=== PATIENT | female | born 1955 | race Caucasian/White ===

== ENCOUNTER 2017-08-11 19:14 | Inpatient (IN) ==
[2017-08-11] MEDS ORDERED: MAGNESIUM SULF RIDER 2 GM in PREMIX 1 EACH IV STA (19:22)
[2017-08-11] MEDS ORDERED: methylPREDNISolone SOD SUC 125 MG/2 ML VIAL IV STA (19:22)
[2017-08-11] MEDS ORDERED: MAGNESIUM SULF RIDER 50 ML IV ONE (19:44)
[2017-08-11] MEDS ORDERED: methylPREDNISolone SOD SUC 125 MG/2 ML VIAL ONE (19:44)
[2017-08-11 19:50] LABS: Basophils % 0.2 % (0.0-0.8); Hematocrit 42.6 VOL% (35.7-47.0); Hemoglobin 13.5 GM/DL (12.0-16.0); Immature Granulocytes % 1.1 %; Immature Granulocytes Absolute 0.17 #; Lymphocytes # 1.5 10*3/uL (1.4-4.0); Lymphocytes % 9.2 % (21.3-54.2); Mean Corpuscular HGB Conc 31.7 GM/DL (32-36); Mean Corpuscular Hemoglobin 27 PG (27-34); Mean Corpuscular Volume 83.7 FL (87-102); Mean Platelet Volume 11.5 FL (9.6-12.0); Monocytes # 0.6 10*3/uL (0.11-0.8); Monocytes % 3.5 % (1.7-12.7); NRBC # 0.06 10*3/uL; Neutrophils # 13.9 10*3/uL (1.4-7.4); Platelet Count 182 T/CUMM (130-400); Red Blood Count 5.09 MC/CUMM (3.8-5.5); Red Cell Distribution Width 15.2 % (9.3-17.3); White Blood Count 16.2 T/CUMM (4-12)
[2017-08-11 19:52] LABS: ABG Base Excess 1.1 MMOL/L (-2.5-2.5); ABG HCO3 25.3 MMOL/L (20-26); ABG Oxygen Saturation 94.5 % (95-100); ABG PCO2 45.7 MM HG (35-48); ABG PH 7.376 (7.35-7.45); ABG PO2 77.8 MM HG (80-95); ABG TCO2 23.4 MMOL/L (23-27); Allen Test Positive
[2017-08-11] MEDS ORDERED: LEVOFLOXACIN INJ 750 MG in PREMIX 1 EACH IV STA (20:10)
[2017-08-11 20:14] LABS: Band Neutrophils 3 % (0-10); Lymphocytes 8 % (20-55); Segmented Neutrophils 85 % (50-85); Total Cells Counted 100
[2017-08-11 20:15] LABS: Burr Cells Few; Elliptocytes Few; Platelet Estimate Adequate
[2017-08-11] MEDS ORDERED: LEVOFLOXACIN INJ 150 ML IV ONE (20:22)
[2017-08-11 20:24] LABS: Bilirubin,Total 0.6 MG/DL (0.2-1.0); Calcium 8.3 MG/DL (8.5-10.1); Osmolality,Calculated 286.4 MOS/KG (273-304); Potassium 2.6 MMOL/L (3.5-5.1); Total Protein 6.2 G/DL (6.4-8.3)
[2017-08-11] MEDS ORDERED: ASPIRIN CHEW 81 MG TABLET PO STA (20:37)
[2017-08-11] MEDS ORDERED: FUROSEMIDE 40 MG/4 ML VIAL IV STA (20:37)
[2017-08-11] MEDS ORDERED: ALBUTEROL/IPRATROPIUM 3 ML NEB RESP TX PRN (20:55)
[2017-08-11] MEDS ORDERED: ONDANSETRON 4 MG/2 ML VIAL IV PRN (20:55)
[2017-08-11] MEDS ORDERED: FUROSEMIDE 20 MG/2 ML VIAL ONE (21:10)
[2017-08-11] MEDS ORDERED: ASPIRIN 325 MG TABLET ONE ×2 (21:10→21:26)
[2017-08-11] MEDS ORDERED: ENOXAPARIN 100 MG/ML SYRINGE SUBCUT ONE ×2 (21:26→22:44)
[2017-08-11] MEDS ORDERED: FAMOTIDINE 20 MG/2 ML VIAL IV ONE ×2 (21:28→21:32)
[2017-08-11] MEDS: FAMOTIDINE 20 MG/2 ML VIAL IV SCH (21:30)
[2017-08-11] MEDS: ENOXAPARIN 100 MG/ML SYRINGE SUBCUT SCH (21:32)
[2017-08-11] MEDS ORDERED: LORazepam 1 MG TABLET PO ONE (22:44)
[2017-08-11] MEDS ORDERED: POTASSIUM CHLORIDE INJ 30 MEQ in SODIUM CHLORIDE 0.9% 500 ML IV ONE (23:00)
[2017-08-11 23:46] LABS: ABG Base Excess 1.9 MMOL/L (-2.5-2.5); ABG HCO3 26.1 MMOL/L (20-26); ABG Oxygen Saturation 98.9 % (95-100); ABG PH 7.338 (7.35-7.45); ABG TCO2 25.4 MMOL/L (23-27)
[2017-08-11] MEDS: ALBUTEROL/IPRATROPIUM 3 ML NEB RESP TX SCH (23:52)
[2017-08-11] MEDS: methylPREDNISolone SOD SUC 125 MG/2 ML VIAL IV SCH (23:55)
[2017-08-12] MEDS: ALPRAZolam 0.25 MG TABLET PO PRN ×3 (00:11→22:57)
[2017-08-12] MEDS: ZIPRASIDONE 20 MG/1 ML VIAL IM PRN ×3 (01:07→22:57)
[2017-08-12] MEDS: ALBUTEROL/IPRATROPIUM 3 ML NEB RESP TX SCH ×6 (03:42→23:34)
[2017-08-12 04:51] LABS: Basophils # 0.1 10*3/uL (0.0-0.2); Basophils % 0.4 % (0.0-0.8); Hematocrit 41.5 VOL% (35.7-47.0); Immature Granulocytes % 1.4 %; Lymphocytes # 1.3 10*3/uL (1.4-4.0); Lymphocytes % 9.4 % (21.3-54.2); Mean Corpuscular HGB Conc 31.3 GM/DL (32-36); Mean Corpuscular Hemoglobin 26 PG (27-34); Mean Corpuscular Volume 83.3 FL (87-102); Mean Platelet Volume 11.1 FL (9.6-12.0); Monocytes # 0.4 10*3/uL (0.11-0.8); Monocytes % 2.6 % (1.7-12.7); NRBC # 0.07 10*3/uL; Neutrophils # 12.2 10*3/uL (1.4-7.4); Neutrophils % 86.2 % (38.7-73.9); Platelet Count 166 T/CUMM (130-400); Red Blood Count 4.98 MC/CUMM (3.8-5.5); Red Cell Distribution Width 15.3 % (9.3-17.3); White Blood Count 14.1 T/CUMM (4-12)
[2017-08-12] MEDS: methylPREDNISolone SOD SUC 125 MG/2 ML VIAL IV SCH ×4 (04:51→22:07)
[2017-08-12 05:16] LABS: INR 1.1; PT Patient Result 11.5 SECS
[2017-08-12 05:32] LABS: Albumin 2.7 G/DL (3.4-5.0); Bilirubin,Total 0.6 MG/DL (0.2-1.0); Calcium 7.6 MG/DL (8.5-10.1); Potassium 2.6 MMOL/L (3.5-5.1); Risk Ratio 2.78; Total Protein 6.2 G/DL (6.4-8.3)
[2017-08-12 05:33] LABS: Band Neutrophils 4 % (0-10); Lymphocytes 7 % (20-55); Segmented Neutrophils 88 % (50-85); Total Cells Counted 100
[2017-08-12 05:34] LABS: Hypochromasia 1+; Microcytosis 1+; Platelet Estimate Adequate
[2017-08-12 05:36] LABS: Troponin I Only 0.214 NG/ML (0.00-0.045)
[2017-08-12] MEDS: POTASSIUM CHLORIDE 20 MEQ TABLET PO PRN ×4 (06:09→17:09)
[2017-08-12] MEDS: cefTRIAXone 1,000 MG in SYRINGE 1 EACH IV SCH (08:46)
[2017-08-12] MEDS: ENOXAPARIN 100 MG/ML SYRINGE SUBCUT SCH ×2 (08:47→22:07)
[2017-08-12] MEDS: FAMOTIDINE 20 MG/2 ML VIAL IV SCH ×2 (08:47→20:16)
[2017-08-12] MEDS: LISINOPRIL/HCTZ 20-25 MG TABLET PO SCH (09:26)
[2017-08-12 10:19] LABS: Apearance,Urine Cloudy (Clear); Glucose,Urine (UA) Negative (Negative); Ketones,Urine 100 mg/dL (Negative); Nitrite,Urine Negative (Negative); Protein,Urine 100 MG/DL; Urine Color Red (Yellow); Urine Specific Gravity 1.025 (1.001-1.035)
[2017-08-12 10:20] LABS: Bilirubin,Urine Negative (Negative); Blood, Urine Large mg/dL (Negative); Urine Urobilinogen 0.2 EU/DL (0.2-1.0)
[2017-08-12 10:26] LABS: RBC,Urine TNTC /HPF (0-4)
[2017-08-12 10:27] LABS: Squamous Epithelial Cell,Urine Few /HPF (0-10); WBC,Urine 25-50 /HPF (0-6)
[2017-08-12] MEDS: METOPROLOL TARTRATE 25 MG TABLET PO SCH ×2 (13:54→20:16)
[2017-08-12] MEDS ORDERED: hydrALAZINE 20 MG/1 ML VIAL IV PRN (15:08)
[2017-08-12 15:14] LABS: Calcium 8.1 MG/DL (8.5-10.1); Magnesium 2.4 MG/DL (1.8-2.4); Osmolality,Calculated 290.8 MOS/KG (273-304); Potassium 2.9 MMOL/L (3.5-5.1)
[2017-08-12] MEDS: LEVOFLOXACIN INJ 750 MG in PREMIX 1 EACH IV SCH (20:16)
[2017-08-13] MEDS: ALBUTEROL/IPRATROPIUM 3 ML NEB RESP TX SCH ×6 (03:53→23:24)
[2017-08-13] MEDS: methylPREDNISolone SOD SUC 125 MG/2 ML VIAL IV SCH ×4 (04:44→22:12)
[2017-08-13 04:50] LABS: Basophils # 0.1 10*3/uL (0.0-0.2); Basophils % 0.3 % (0.0-0.8); Hematocrit 41.4 VOL% (35.7-47.0); Hemoglobin 12.8 GM/DL (12.0-16.0); Immature Granulocytes % 2.3 %; Immature Granulocytes Absolute 0.41 #; Lymphocytes # 1.5 10*3/uL (1.4-4.0); Lymphocytes % 8.5 % (21.3-54.2); Mean Corpuscular HGB Conc 30.9 GM/DL (32-36); Mean Corpuscular Hemoglobin 27 PG (27-34); Mean Corpuscular Volume 85.7 FL (87-102); Monocytes # 1.1 10*3/uL (0.11-0.8); NRBC # 0.06 10*3/uL; Neutrophils # 14.5 10*3/uL (1.4-7.4); Neutrophils % 82.9 % (38.7-73.9); Platelet Count 190 T/CUMM (130-400); Red Blood Count 4.83 MC/CUMM (3.8-5.5); Red Cell Distribution Width 15.2 % (9.3-17.3); White Blood Count 17.6 T/CUMM (4-12)
[2017-08-13 05:13] LABS: Band Neutrophils 3 % (0-10); Giant Platelets Few; Hypochromasia 1+; Lymphocytes 6 % (20-55); Platelet Estimate Adequate; Segmented Neutrophils 87 % (50-85); Total Cells Counted 100
[2017-08-13 05:14] LABS: Microcytosis Slight; Ovalocytes Slight
[2017-08-13] MEDS: LEVOTHYROXINE 175 MCG TABLET PO SCH (06:06)
[2017-08-13 06:39] LABS: Calcium 8.1 MG/DL (8.5-10.1); Magnesium 2.6 MG/DL (1.8-2.4); Osmolality,Calculated 289.8 MOS/KG (273-304)
[2017-08-13] MEDS ORDERED: FUROSEMIDE 40 MG/4 ML VIAL IV ONE (07:32)
[2017-08-13] MEDS: ASPIRIN EC 81 MG TABLET PO SCH (08:13)
[2017-08-13] MEDS: METOPROLOL TARTRATE 25 MG TABLET PO SCH ×2 (08:13→20:24)
[2017-08-13] MEDS: POTASSIUM CHLORIDE 20 MEQ TABLET PO PRN ×4 (08:13→16:58)
[2017-08-13] MEDS: DULoxetine 30 MG CAPSULE PO SCH (08:13)
[2017-08-13] MEDS: LISINOPRIL/HCTZ 20-25 MG TABLET PO SCH (08:13)
[2017-08-13] MEDS: cefTRIAXone 1,000 MG in SYRINGE 1 EACH IV SCH (08:16)
[2017-08-13] MEDS: FAMOTIDINE 20 MG/2 ML VIAL IV SCH ×2 (08:16→20:24)
[2017-08-13] MEDS: ENOXAPARIN 100 MG/ML SYRINGE SUBCUT SCH ×2 (08:30→20:38)
[2017-08-13] MEDS: LEVOFLOXACIN INJ 750 MG in PREMIX 1 EACH IV SCH (20:24)
[2017-08-13] MEDS: ZIPRASIDONE 20 MG/1 ML VIAL IM PRN (21:13)
[2017-08-13] MEDS ORDERED: ETOMIDATE 20 MG/10 ML VIAL IV ONE (22:32)
[2017-08-13] MEDS ORDERED: SUCCINYLCHOLINE 200 MG/10 ML VIAL ONE (22:33)
[2017-08-13] MEDS ORDERED: LORazepam 2 MG/1 ML VIAL IV ONE (23:30)
[2017-08-14] MEDS: ALBUTEROL/IPRATROPIUM 3 ML NEB RESP TX SCH ×6 (03:24→23:20)
[2017-08-14 04:43] LABS: Basophils # 0.1 10*3/uL (0.0-0.2); Basophils % 0.5 % (0.0-0.8); Hematocrit 41.8 VOL% (35.7-47.0); Hemoglobin 13.3 GM/DL (12.0-16.0); Immature Granulocytes % 2.4 %; Lymphocytes # 0.9 10*3/uL (1.4-4.0); Lymphocytes % 5.7 % (21.3-54.2); Mean Corpuscular HGB Conc 31.8 GM/DL (32-36); Mean Corpuscular Hemoglobin 26 PG (27-34); Mean Corpuscular Volume 82.9 FL (87-102); Monocytes # 1.1 10*3/uL (0.11-0.8); Monocytes % 6.8 % (1.7-12.7); NRBC # 0.07 10*3/uL; Neutrophils % 84.6 % (38.7-73.9); Platelet Count 235 T/CUMM (130-400); Red Blood Count 5.04 MC/CUMM (3.8-5.5); Red Cell Distribution Width 15.2 % (9.3-17.3); White Blood Count 16.5 T/CUMM (4-12)
[2017-08-14 05:11] LABS: Calcium 8.3 MG/DL (8.5-10.1); Magnesium 2.1 MG/DL (1.8-2.4); Osmolality,Calculated 286.3 MOS/KG (273-304); Potassium 2.7 MMOL/L (3.5-5.1)
[2017-08-14] MEDS: POTASSIUM CHLORIDE 20 MEQ TABLET PO PRN ×7 (05:18→23:30)
[2017-08-14] MEDS: methylPREDNISolone SOD SUC 125 MG/2 ML VIAL IV SCH ×3 (05:19→16:46)
[2017-08-14] MEDS: LEVOTHYROXINE 175 MCG TABLET PO SCH (06:16)
[2017-08-14] MEDS: cefTRIAXone 1,000 MG in SYRINGE 1 EACH IV SCH (08:30)
[2017-08-14] MEDS ORDERED: DEXTROSE 5% NACL 0.45% 1,000 ML IV SCH (08:30)
[2017-08-14 09:11] LABS: ABG Base Excess 10.7 MMOL/L (-2.5-2.5); ABG HCO3 34.5 MMOL/L (20-26); ABG Oxygen Saturation 97.9 % (95-100); ABG PCO2 54.7 MM HG (35-48); ABG PH 7.441 (7.35-7.45); ABG TCO2 32.4 MMOL/L (23-27)
[2017-08-14] MEDS: DEXT 5% NACL 0.45% KCL 20 MEQ 20 MEQ/1,000 ML BAG IV SCH ×2 (09:23→20:27)
[2017-08-14] MEDS: FAMOTIDINE 20 MG/2 ML VIAL IV SCH ×2 (09:26→20:28)
[2017-08-14] MEDS: ASPIRIN EC 81 MG TABLET PO SCH (09:26)
[2017-08-14] MEDS: DULoxetine 30 MG CAPSULE PO SCH (09:26)
[2017-08-14] MEDS: LISINOPRIL/HCTZ 20-25 MG TABLET PO SCH (09:26)
[2017-08-14] MEDS: METOPROLOL TARTRATE 25 MG TABLET PO SCH ×2 (09:26→20:28)
[2017-08-14] MEDS: ENOXAPARIN 100 MG/ML SYRINGE SUBCUT SCH ×2 (09:54→20:33)
[2017-08-14 10:20] LABS: Calcium 8.1 MG/DL (8.5-10.1); Osmolality,Calculated 289.3 MOS/KG (273-304); Potassium 2.8 MMOL/L (3.5-5.1)
[2017-08-14] MEDS ORDERED: diphenhydrAMINE 25 MG/10 ML UDCUP PO PRN (15:43)
[2017-08-14] MEDS: LEVOFLOXACIN INJ 750 MG in PREMIX 1 EACH IV SCH (20:28)
[2017-08-15] MEDS: methylPREDNISolone SOD SUC 125 MG/2 ML VIAL IV SCH ×4 (00:05→21:46)
[2017-08-15] MEDS: ALBUTEROL/IPRATROPIUM 3 ML NEB RESP TX SCH ×6 (03:30→23:59)
[2017-08-15 03:41] LABS: ABG PCO2 54.9 MM HG (35-48); ABG PH 7.475 (7.35-7.45)
[2017-08-15 03:42] LABS: ABG Base Excess 13.7 MMOL/L (-2.5-2.5); ABG HCO3 39.5 MMOL/L (20-26); ABG PO2 111.6 MM HG (80-95); ABG TCO2 41.2 MMOL/L (23-27)
[2017-08-15 03:43] LABS: ABG Oxygen Saturation 98.1 % (95-100)
[2017-08-15 03:44] LABS: Allen Test Positive
[2017-08-15 05:29] LABS: Basophils # 0.1 10*3/uL (0.0-0.2); Basophils % 0.3 % (0.0-0.8); Hematocrit 40.1 VOL% (35.7-47.0); Hemoglobin 12.3 GM/DL (12.0-16.0); Immature Granulocytes % 3.1 %; Lymphocytes % 5.4 % (21.3-54.2); Mean Corpuscular HGB Conc 30.7 GM/DL (32-36); Mean Corpuscular Hemoglobin 26 PG (27-34); Mean Platelet Volume 11.7 FL (9.6-12.0); Monocytes # 1.3 10*3/uL (0.11-0.8); Neutrophils # 16.2 10*3/uL (1.4-7.4); Neutrophils % 84.2 % (38.7-73.9); Platelet Count 201 T/CUMM (130-400); Red Blood Count 4.72 MC/CUMM (3.8-5.5); Red Cell Distribution Width 15.1 % (9.3-17.3); White Blood Count 19.2 T/CUMM (4-12)
[2017-08-15 05:48] LABS: Calcium 7.7 MG/DL (8.5-10.1); Magnesium 2.3 MG/DL (1.8-2.4); Osmolality,Calculated 282.5 MOS/KG (273-304); Potassium 3.9 MMOL/L (3.5-5.1)
[2017-08-15] MEDS: DEXT 5% NACL 0.45% KCL 20 MEQ 20 MEQ/1,000 ML BAG IV SCH (06:10)
[2017-08-15] MEDS: LEVOTHYROXINE 175 MCG TABLET PO SCH (06:10)
[2017-08-15 06:11] LABS: Hypochromasia 1+; Lymphocytes 3 % (20-55); Platelet Estimate Adequate; Segmented Neutrophils 88 % (50-85); Total Cells Counted 100
[2017-08-15 06:12] LABS: Giant Platelets Few; Microcytosis Slight; Ovalocytes Slight
[2017-08-15] MEDS: POTASSIUM CHLORIDE 20 MEQ TABLET PO PRN (06:36)
[2017-08-15] MEDS: METOPROLOL TARTRATE 25 MG TABLET PO SCH ×2 (09:01→21:28)
[2017-08-15] MEDS: DULoxetine 30 MG CAPSULE PO SCH (09:01)
[2017-08-15] MEDS: LISINOPRIL/HCTZ 20-25 MG TABLET PO SCH (09:01)
[2017-08-15] MEDS: ASPIRIN EC 81 MG TABLET PO SCH (09:01)
[2017-08-15] MEDS: cefTRIAXone 1,000 MG in SYRINGE 1 EACH IV SCH (09:18)
[2017-08-15] MEDS: FAMOTIDINE 20 MG/2 ML VIAL IV SCH ×2 (09:19→21:46)
[2017-08-15] MEDS: ENOXAPARIN 100 MG/ML SYRINGE SUBCUT SCH ×2 (09:23→22:51)
[2017-08-15] MEDS: ISOSORBIDE MONONITRATE 30 MG TABLET PO SCH (09:28)
[2017-08-15] MEDS: ALPRAZolam 0.25 MG TABLET PO PRN (13:38)
[2017-08-15] MEDS ORDERED: methylPREDNISolone SOD SUC 40 MG/1 ML VIAL ONE (15:49)
[2017-08-15] MEDS ORDERED: tiZANidine 4 MG TABLET PO PRN (19:09)
[2017-08-15] MEDS ORDERED: ACETAMINOPHEN 325 MG TABLET PO PRN (19:27)
[2017-08-15] MEDS ORDERED: traMADol 50 MG TABLET PO PRN (19:27)
[2017-08-15] MEDS: AMITRIPTYLINE 75 MG TABLET PO SCH (21:36)
[2017-08-15] MEDS: traZODone 50 MG TABLET PO SCH (21:37)
[2017-08-15] MEDS: ROSUVASTATIN 20 MG TABLET PO SCH (21:37)
[2017-08-15] MEDS: LEVOFLOXACIN INJ 750 MG in PREMIX 1 EACH IV SCH (22:49)
[2017-08-16] MEDS ORDERED: ENOXAPARIN 100 MG/ML SYRINGE SUBCUT SCH (02:30)
[2017-08-16] MEDS: ALBUTEROL/IPRATROPIUM 3 ML NEB RESP TX SCH ×5 (03:38→20:24)
[2017-08-16 05:21] LABS: Basophils % 0.2 % (0.0-0.8); Hematocrit 36.8 VOL% (35.7-47.0); Hemoglobin 11.3 GM/DL (12.0-16.0); Immature Granulocytes % 4.6 %; Immature Granulocytes Absolute 0.76 #; Lymphocytes # 1.4 10*3/uL (1.4-4.0); Lymphocytes % 8.3 % (21.3-54.2); Mean Corpuscular HGB Conc 30.7 GM/DL (32-36); Mean Corpuscular Hemoglobin 26 PG (27-34); Mean Corpuscular Volume 85.4 FL (87-102); Mean Platelet Volume 11.6 FL (9.6-12.0); Monocytes # 1.1 10*3/uL (0.11-0.8); Monocytes % 6.4 % (1.7-12.7); Neutrophils # 13.2 10*3/uL (1.4-7.4); Neutrophils % 80.5 % (38.7-73.9); Platelet Count 223 T/CUMM (130-400); Red Blood Count 4.31 MC/CUMM (3.8-5.5); Red Cell Distribution Width 14.9 % (9.3-17.3); White Blood Count 16.4 T/CUMM (4-12)
[2017-08-16 05:50] LABS: Giant Platelets Few; Hypochromasia 1+; Lymphocytes 3 % (20-55); Microcytosis Slight; Ovalocytes Slight; Platelet Estimate Adequate; Segmented Neutrophils 92 % (50-85); Total Cells Counted 100
[2017-08-16 05:54] LABS: Calcium 7.9 MG/DL (8.5-10.1); Magnesium 2.2 MG/DL (1.8-2.4); Osmolality,Calculated 280.7 MOS/KG (273-304)
[2017-08-16] MEDS: LEVOTHYROXINE 175 MCG TABLET PO SCH (06:11)
[2017-08-16] MEDS: methylPREDNISolone SOD SUC 125 MG/2 ML VIAL IV SCH (06:12)
[2017-08-16] MEDS: DULoxetine 30 MG CAPSULE PO SCH (09:27)
[2017-08-16] MEDS: METOPROLOL TARTRATE 25 MG TABLET PO SCH ×2 (09:27→20:57)
[2017-08-16] MEDS: AMITRIPTYLINE 75 MG TABLET PO SCH (09:27)
[2017-08-16] MEDS: LISINOPRIL/HCTZ 20-25 MG TABLET PO SCH (09:27)
[2017-08-16] MEDS: ISOSORBIDE MONONITRATE 30 MG TABLET PO SCH (09:28)
[2017-08-16] MEDS: ASPIRIN EC 81 MG TABLET PO SCH (09:28)
[2017-08-16] MEDS: FAMOTIDINE 20 MG/2 ML VIAL IV SCH ×2 (09:28→21:02)
[2017-08-16] MEDS: cefTRIAXone 1,000 MG in SYRINGE 1 EACH IV SCH (09:28)
[2017-08-16] MEDS: methylPREDNISolone SOD SUC 40 MG/1 ML VIAL IV SCH ×2 (11:30→22:27)
[2017-08-16] MEDS: ENOXAPARIN 100 MG/ML SYRINGE SUBCUT SCH (11:30)
[2017-08-16] MEDS: ROSUVASTATIN 20 MG TABLET PO SCH (20:57)
[2017-08-16] MEDS: traZODone 50 MG TABLET PO SCH (20:57)
[2017-08-16] MEDS: LEVOFLOXACIN INJ 750 MG in PREMIX 1 EACH IV SCH (21:03)
[2017-08-17] MEDS: ALBUTEROL/IPRATROPIUM 3 ML NEB RESP TX SCH ×7 (00:32→23:46)
[2017-08-17 05:34] LABS: Basophils # 0.1 10*3/uL (0.0-0.2); Basophils % 0.2 % (0.0-0.8); Hematocrit 32.1 VOL% (35.7-47.0); Hemoglobin 10.1 GM/DL (12.0-16.0); Immature Granulocytes % 4.7 %; Immature Granulocytes Absolute 0.96 #; Lymphocytes # 1.5 10*3/uL (1.4-4.0); Lymphocytes % 7.1 % (21.3-54.2); Mean Corpuscular HGB Conc 31.5 GM/DL (32-36); Mean Corpuscular Hemoglobin 27 PG (27-34); Mean Corpuscular Volume 84.7 FL (87-102); Mean Platelet Volume 11.6 FL (9.6-12.0); Monocytes # 1.7 10*3/uL (0.11-0.8); Monocytes % 8.5 % (1.7-12.7); Neutrophils # 16.2 10*3/uL (1.4-7.4); Neutrophils % 79.5 % (38.7-73.9); Platelet Count 231 T/CUMM (130-400); Red Blood Count 3.79 MC/CUMM (3.8-5.5); Red Cell Distribution Width 15.1 % (9.3-17.3); White Blood Count 20.4 T/CUMM (4-12)
[2017-08-17 06:17] LABS: Magnesium 2.4 MG/DL (1.8-2.4); Osmolality,Calculated 286.3 MOS/KG (273-304); Potassium 3.8 MMOL/L (3.5-5.1)
[2017-08-17] MEDS: LEVOTHYROXINE 175 MCG TABLET PO SCH (06:36)
[2017-08-17 07:13] LABS: Band Neutrophils 1 % (0-10); Lymphocytes 8 % (20-55); Platelet Estimate Normal; Polychromasia Slight; Segmented Neutrophils 89 % (50-85); Total Cells Counted 100
[2017-08-17] MEDS: DULoxetine 30 MG CAPSULE PO SCH (08:28)
[2017-08-17] MEDS: LISINOPRIL/HCTZ 20-25 MG TABLET PO SCH (08:29)
[2017-08-17] MEDS: ASPIRIN EC 81 MG TABLET PO SCH (08:29)
[2017-08-17] MEDS: METOPROLOL TARTRATE 25 MG TABLET PO SCH ×2 (08:29→20:30)
[2017-08-17] MEDS: AMITRIPTYLINE 75 MG TABLET PO SCH (08:29)
[2017-08-17] MEDS: ISOSORBIDE MONONITRATE 30 MG TABLET PO SCH (08:29)
[2017-08-17] MEDS: FAMOTIDINE 20 MG/2 ML VIAL IV SCH ×2 (08:30→20:30)
[2017-08-17] MEDS: ENOXAPARIN 100 MG/ML SYRINGE SUBCUT SCH (08:30)
[2017-08-17] MEDS: cefTRIAXone 1,000 MG in SYRINGE 1 EACH IV SCH (08:32)
[2017-08-17] MEDS: methylPREDNISolone SOD SUC 40 MG/1 ML VIAL IV SCH ×2 (09:34→23:16)
[2017-08-17] MEDS ORDERED: SODIUM CHLORIDE 0.9% 1,000 ML IV SCH (15:30)
[2017-08-17] MEDS: LEVOFLOXACIN INJ 750 MG in PREMIX 1 EACH IV SCH (20:30)
[2017-08-17] MEDS: traZODone 50 MG TABLET PO SCH (20:30)
[2017-08-17] MEDS: ROSUVASTATIN 20 MG TABLET PO SCH (20:30)
[2017-08-18] MEDS: ALBUTEROL/IPRATROPIUM 3 ML NEB RESP TX SCH ×5 (03:47→21:22)
[2017-08-18] MEDS: ASPIRIN EC 81 MG TABLET PO SCH (08:24)
[2017-08-18] MEDS: LEVOTHYROXINE 175 MCG TABLET PO SCH (08:24)
[2017-08-18] MEDS: AMITRIPTYLINE 75 MG TABLET PO SCH (08:24)
[2017-08-18] MEDS: FAMOTIDINE 20 MG/2 ML VIAL IV SCH ×2 (08:25→21:08)
[2017-08-18] MEDS: ISOSORBIDE MONONITRATE 30 MG TABLET PO SCH (08:25)
[2017-08-18] MEDS: DULoxetine 30 MG CAPSULE PO SCH (08:25)
[2017-08-18] MEDS: cefTRIAXone 1,000 MG in SYRINGE 1 EACH IV SCH (08:30)
[2017-08-18] MEDS: ENOXAPARIN 100 MG/ML SYRINGE SUBCUT SCH (08:35)
[2017-08-18] MEDS: methylPREDNISolone SOD SUC 40 MG/1 ML VIAL IV SCH ×2 (10:20→22:42)
[2017-08-18] MEDS: LISINOPRIL/HCTZ 20-25 MG TABLET PO SCH (10:28)
[2017-08-18] MEDS: METOPROLOL TARTRATE 25 MG TABLET PO SCH ×2 (10:28→21:08)
[2017-08-18 18:54] LABS: Basophils # 0.1 10*3/uL (0.0-0.2); Basophils % 0.2 % (0.0-0.8); Eosinophils % 0.1 % (0.00-10.9); Hematocrit 26.8 VOL% (35.7-47.0); Hemoglobin 8.5 GM/DL (12.0-16.0); Immature Granulocytes % 4.6 %; Immature Granulocytes Absolute 1.34 #; Lymphocytes # 1.4 10*3/uL (1.4-4.0); Lymphocytes % 4.9 % (21.3-54.2); Mean Corpuscular HGB Conc 31.7 GM/DL (32-36); Mean Corpuscular Hemoglobin 27 PG (27-34); Mean Corpuscular Volume 84.5 FL (87-102); Mean Platelet Volume 11.9 FL (9.6-12.0); Monocytes # 1.7 10*3/uL (0.11-0.8); Monocytes % 5.9 % (1.7-12.7); NRBC # 0.14 10*3/uL; Neutrophils # 24.7 10*3/uL (1.4-7.4); Neutrophils % 84.3 % (38.7-73.9); Platelet Count 269 T/CUMM (130-400); Red Blood Count 3.17 MC/CUMM (3.8-5.5); Red Cell Distribution Width 15.4 % (9.3-17.3); White Blood Count 29.2 T/CUMM (4-12)
[2017-08-18 19:08] LABS: Lymphocytes 6 % (20-55); Ovalocytes Slight; Platelet Estimate Adequate; Poikilocytosis Slight; Segmented Neutrophils 94 % (50-85); Total Cells Counted 100
[2017-08-18 19:09] LABS: Tear Drop Cells Slight
[2017-08-18] MEDS: ROSUVASTATIN 20 MG TABLET PO SCH (21:08)
[2017-08-18] MEDS: traZODone 50 MG TABLET PO SCH (21:08)
[2017-08-18] MEDS: LEVOFLOXACIN INJ 750 MG in PREMIX 1 EACH IV SCH (21:09)
[2017-08-19] MEDS: ALBUTEROL/IPRATROPIUM 3 ML NEB RESP TX SCH ×7 (01:39→23:59)
[2017-08-19 06:34] LABS: Basophils % 0.1 % (0.0-0.8); Eosinophils % 0.1 % (0.00-10.9); Hematocrit 25.1 VOL% (35.7-47.0); Hemoglobin 7.8 GM/DL (12.0-16.0); Immature Granulocytes % 3.8 %; Lymphocytes # 4.3 10*3/uL (1.4-4.0); Lymphocytes % 16.2 % (21.3-54.2); Mean Corpuscular HGB Conc 31.1 GM/DL (32-36); Mean Corpuscular Hemoglobin 27 PG (27-34); Mean Corpuscular Volume 85.4 FL (87-102); Mean Platelet Volume 11.6 FL (9.6-12.0); Monocytes % 7.5 % (1.7-12.7); Neutrophils % 72.3 % (38.7-73.9); Platelet Count 248 T/CUMM (130-400); Red Blood Count 2.94 MC/CUMM (3.8-5.5); Red Cell Distribution Width 15.4 % (9.3-17.3); White Blood Count 26.3 T/CUMM (4-12)
[2017-08-19] MEDS: LEVOTHYROXINE 175 MCG TABLET PO SCH (06:51)
[2017-08-19 07:03] LABS: Calcium 7.9 MG/DL (8.5-10.1); Magnesium 2.3 MG/DL (1.8-2.4); Osmolality,Calculated 280.7 MOS/KG (273-304); Potassium 3.2 MMOL/L (3.5-5.1)
[2017-08-19 07:16] LABS: Hypochromasia 1+; Lymphocytes 13 % (20-55); Microcytosis 1+; Myelocytes 1 %; Segmented Neutrophils 82 % (50-85); Total Cells Counted 100
[2017-08-19 07:17] LABS: Ovalocytes Slight; Platelet Estimate Normal
[2017-08-19] MEDS ORDERED: SODIUM CHLORIDE 0.9% 1,000 ML IV PRN (08:42)
[2017-08-19] MEDS: cefTRIAXone 1,000 MG in SYRINGE 1 EACH IV SCH (09:40)
[2017-08-19] MEDS: FAMOTIDINE 20 MG/2 ML VIAL IV SCH ×2 (09:47→21:25)
[2017-08-19] MEDS: METOPROLOL TARTRATE 25 MG TABLET PO SCH ×2 (09:51→21:26)
[2017-08-19] MEDS: AMITRIPTYLINE 75 MG TABLET PO SCH (09:51)
[2017-08-19] MEDS: DULoxetine 30 MG CAPSULE PO SCH (09:51)
[2017-08-19] MEDS: POTASSIUM CHLORIDE 20 MEQ TABLET PO PRN ×4 (09:52→16:25)
[2017-08-19] MEDS: methylPREDNISolone SOD SUC 40 MG/1 ML VIAL IV SCH ×2 (10:44→21:30)
[2017-08-19 15:05] LABS: Basophils % 0.1 % (0.0-0.8); Hematocrit 24.4 VOL% (35.7-47.0); Hemoglobin 7.7 GM/DL (12.0-16.0); Immature Granulocytes % 4.4 %; Lymphocytes # 1.2 10*3/uL (1.4-4.0); Lymphocytes % 4.8 % (21.3-54.2); Mean Corpuscular HGB Conc 31.6 GM/DL (32-36); Mean Corpuscular Hemoglobin 27 PG (27-34); Mean Corpuscular Volume 85.9 FL (87-102); Mean Platelet Volume 11.7 FL (9.6-12.0); Monocytes # 1.4 10*3/uL (0.11-0.8); Monocytes % 5.6 % (1.7-12.7); Neutrophils # 21.2 10*3/uL (1.4-7.4); Neutrophils % 85.1 % (38.7-73.9); Platelet Count 228 T/CUMM (130-400); Red Blood Count 2.84 MC/CUMM (3.8-5.5); Red Cell Distribution Width 15.4 % (9.3-17.3); White Blood Count 24.9 T/CUMM (4-12)
[2017-08-19 16:05] LABS: Band Neutrophils 2 % (0-10); Lymphocytes 5 % (20-55); Segmented Neutrophils 90 % (50-85); Total Cells Counted 100
[2017-08-19 16:06] LABS: Anisocytosis 1+; Platelet Estimate Normal
[2017-08-19] MEDS: LEVOFLOXACIN INJ 750 MG in PREMIX 1 EACH IV SCH (21:25)
[2017-08-19] MEDS: ROSUVASTATIN 20 MG TABLET PO SCH (21:25)
[2017-08-19] MEDS: traZODone 50 MG TABLET PO SCH (21:26)
[2017-08-20] MEDS: ALBUTEROL/IPRATROPIUM 3 ML NEB RESP TX SCH ×6 (03:30→23:55)
[2017-08-20 05:37] LABS: Basophils % 0.1 % (0.0-0.8); Hematocrit 29.6 VOL% (35.7-47.0); Immature Granulocytes % 5.3 %; Immature Granulocytes Absolute 1.23 #; Lymphocytes % 4.3 % (21.3-54.2); Mean Corpuscular HGB Conc 31.8 GM/DL (32-36); Mean Corpuscular Hemoglobin 27 PG (27-34); Mean Corpuscular Volume 85.3 FL (87-102); Mean Platelet Volume 12.1 FL (9.6-12.0); Monocytes % 4.3 % (1.7-12.7); Neutrophils # 19.8 10*3/uL (1.4-7.4); Platelet Count 217 T/CUMM (130-400); Red Blood Count 3.47 MC/CUMM (3.8-5.5); Red Cell Distribution Width 15.2 % (9.3-17.3); White Blood Count 23.1 T/CUMM (4-12)
[2017-08-20 05:38] LABS: Hematocrit 29.4 VOL% (35.7-47.0); Hemoglobin 9.2 GM/DL (12.0-16.0)
[2017-08-20 05:41] LABS: Calcium 7.8 MG/DL (8.5-10.1); Magnesium 2.1 MG/DL (1.8-2.4); Osmolality,Calculated 280.5 MOS/KG (273-304); Potassium 4.8 MMOL/L (3.5-5.1)
[2017-08-20 05:52] LABS: Hemoglobin 9.4 GM/DL (12.0-16.0)
[2017-08-20] MEDS: LEVOTHYROXINE 175 MCG TABLET PO SCH (06:11)
[2017-08-20 06:34] LABS: Band Neutrophils 2 % (0-10); Giant Platelets Few; Hypochromasia 1+; Lymphocytes 6 % (20-55); Microcytosis Slight; Ovalocytes Slight; Platelet Estimate Adequate; Segmented Neutrophils 89 % (50-85); Total Cells Counted 100
[2017-08-20] MEDS ORDERED: PHYTONADIONE 10 MG/1 ML AMP SUBCUT SCH (09:15)
[2017-08-20] MEDS: cefTRIAXone 1,000 MG in SYRINGE 1 EACH IV SCH (09:19)
[2017-08-20] MEDS: FAMOTIDINE 20 MG/2 ML VIAL IV SCH ×2 (09:26→21:50)
[2017-08-20] MEDS ORDERED: PHYTONADIONE 5 MG/5 ML ORAL.SYR PO ONE (09:30)
[2017-08-20] MEDS: AMITRIPTYLINE 75 MG TABLET PO SCH (09:30)
[2017-08-20] MEDS: DULoxetine 30 MG CAPSULE PO SCH (09:30)
[2017-08-20] MEDS: METOPROLOL TARTRATE 25 MG TABLET PO SCH ×2 (09:30→21:47)
[2017-08-20] MEDS: ASPIRIN EC 81 MG TABLET PO SCH (09:32)
[2017-08-20] MEDS: methylPREDNISolone SOD SUC 40 MG/1 ML VIAL IV SCH ×2 (10:48→18:15)
[2017-08-20 11:12] LABS: Hematocrit 28.6 VOL% (35.7-47.0); Hemoglobin 9.1 GM/DL (12.0-16.0)
[2017-08-20 18:01] LABS: Hematocrit 30.5 VOL% (35.7-47.0); Hemoglobin 9.6 GM/DL (12.0-16.0)
[2017-08-20] MEDS: traZODone 50 MG TABLET PO SCH (21:49)
[2017-08-20] MEDS: ROSUVASTATIN 20 MG TABLET PO SCH (21:49)
[2017-08-21] MEDS: ALBUTEROL/IPRATROPIUM 3 ML NEB RESP TX SCH ×5 (03:28→19:50)
[2017-08-21] MEDS: methylPREDNISolone SOD SUC 40 MG/1 ML VIAL IV SCH (06:30)
[2017-08-21] MEDS: LEVOTHYROXINE 175 MCG TABLET PO SCH (06:30)
[2017-08-21 06:56] LABS: Magnesium 2.1 MG/DL (1.8-2.4); Osmolality,Calculated 278.5 MOS/KG (273-304); Potassium 4.6 MMOL/L (3.5-5.1)
[2017-08-21 07:16] LABS: Basophils # 0.1 10*3/uL (0.0-0.2); Basophils % 0.3 % (0.0-0.8); Hematocrit 31.6 VOL% (35.7-47.0); Hemoglobin 9.5 GM/DL (12.0-16.0); Immature Granulocytes % 5.4 %; Immature Granulocytes Absolute 1.34 #; Lymphocytes # 2.1 10*3/uL (1.4-4.0); Lymphocytes % 8.5 % (21.3-54.2); Mean Corpuscular HGB Conc 30.1 GM/DL (32-36); Mean Corpuscular Hemoglobin 27 PG (27-34); Mean Corpuscular Volume 91.1 FL (87-102); Mean Platelet Volume 12.9 FL (9.6-12.0); Monocytes # 1.9 10*3/uL (0.11-0.8); Monocytes % 7.6 % (1.7-12.7); NRBC # 0.02 10*3/uL; Neutrophils # 19.3 10*3/uL (1.4-7.4); Neutrophils % 78.2 % (38.7-73.9); Platelet Count 225 T/CUMM (130-400); Red Blood Count 3.47 MC/CUMM (3.8-5.5); Red Cell Distribution Width 15.9 % (9.3-17.3); White Blood Count 24.7 T/CUMM (4-12)
[2017-08-21 07:37] LABS: Band Neutrophils 4 % (0-10); Lymphocytes 14 % (20-55); Platelet Estimate Normal; Segmented Neutrophils 78 % (50-85); Total Cells Counted 100
[2017-08-21] MEDS: AMITRIPTYLINE 75 MG TABLET PO SCH (09:35)
[2017-08-21] MEDS: METOPROLOL TARTRATE 25 MG TABLET PO SCH ×2 (09:36→21:10)
[2017-08-21] MEDS: DULoxetine 30 MG CAPSULE PO SCH (09:36)
[2017-08-21] MEDS: ASPIRIN EC 81 MG TABLET PO SCH (09:36)
[2017-08-21] MEDS: FAMOTIDINE 20 MG/2 ML VIAL IV SCH ×2 (09:37→21:10)
[2017-08-21] MEDS: cefTRIAXone 1,000 MG in SYRINGE 1 EACH IV SCH (09:39)
[2017-08-21] MEDS: ROSUVASTATIN 20 MG TABLET PO SCH (21:09)
[2017-08-21] MEDS: CEFUROXIME 500 MG TABLET PO SCH (21:09)
[2017-08-21] MEDS: traZODone 50 MG TABLET PO SCH (21:10)
[2017-08-22] MEDS: ALBUTEROL/IPRATROPIUM 3 ML NEB RESP TX SCH ×6 (00:26→20:04)
[2017-08-22] MEDS: LEVOTHYROXINE 175 MCG TABLET PO SCH (06:39)
[2017-08-22] MEDS: LISINOPRIL/HCTZ 20-25 MG TABLET PO SCH (08:29)
[2017-08-22] MEDS: ISOSORBIDE MONONITRATE 30 MG TABLET PO SCH (08:29)
[2017-08-22] MEDS: CEFUROXIME 500 MG TABLET PO SCH ×2 (08:29→22:13)
[2017-08-22] MEDS: DULoxetine 30 MG CAPSULE PO SCH (08:29)
[2017-08-22] MEDS: METOPROLOL TARTRATE 25 MG TABLET PO SCH ×2 (08:29→22:13)
[2017-08-22] MEDS: AMITRIPTYLINE 75 MG TABLET PO SCH (08:29)
[2017-08-22] MEDS: FAMOTIDINE 20 MG/2 ML VIAL IV SCH ×2 (08:30→22:13)
[2017-08-22] MEDS: ASPIRIN EC 81 MG TABLET PO SCH (08:30)
[2017-08-22 09:20] LABS: Basophils # 0.1 10*3/uL (0.0-0.2); Basophils % 0.2 % (0.0-0.8); Eosinophils # 0.1 10*3/uL (0.0-0.87); Eosinophils % 0.3 % (0.00-10.9); Hematocrit 32.2 VOL% (35.7-47.0); Hemoglobin 10.1 GM/DL (12.0-16.0); Immature Granulocytes Absolute 1.31 #; Lymphocytes # 3.8 10*3/uL (1.4-4.0); Lymphocytes % 14.4 % (21.3-54.2); Mean Corpuscular HGB Conc 31.4 GM/DL (32-36); Mean Corpuscular Hemoglobin 27 PG (27-34); Mean Corpuscular Volume 87.5 FL (87-102); Monocytes # 2.1 10*3/uL (0.11-0.8); Monocytes % 8.2 % (1.7-12.7); NRBC # 0.08 10*3/uL; Neutrophils # 18.8 10*3/uL (1.4-7.4); Neutrophils % 71.9 % (38.7-73.9); Platelet Count 353 T/CUMM (130-400); Red Blood Count 3.68 MC/CUMM (3.8-5.5); Red Cell Distribution Width 16.1 % (9.3-17.3); White Blood Count 26.1 T/CUMM (4-12)
[2017-08-22 09:48] LABS: Band Neutrophils 3 % (0-10); Giant Platelets Few; Hypochromasia 1+; Lymphocytes 12 % (20-55); Nucleated Red Blood Cells 1 (0-5); Platelet Estimate Adequate; Segmented Neutrophils 76 % (50-85); Total Cells Counted 100
[2017-08-22 09:49] LABS: Microcytosis Slight
[2017-08-22 09:51] LABS: Calcium 8.6 MG/DL (8.5-10.1); Osmolality,Calculated 281.3 MOS/KG (273-304)
[2017-08-22] MEDS ORDERED: MAGNESIUM HYDROXIDE SUSP 30 ML UDCUP PO PRN (16:35)
[2017-08-22] MEDS: ROSUVASTATIN 20 MG TABLET PO SCH (22:13)
[2017-08-22] MEDS: traZODone 50 MG TABLET PO SCH (22:13)
[2017-08-23] MEDS: ALBUTEROL/IPRATROPIUM 3 ML NEB RESP TX SCH ×4 (00:14→11:30)
[2017-08-23 05:10] LABS: Basophils % 0.1 % (0.0-0.8); Eosinophils # 0.1 10*3/uL (0.0-0.87); Eosinophils % 0.7 % (0.00-10.9); Hematocrit 27.8 VOL% (35.7-47.0); Hemoglobin 8.6 GM/DL (12.0-16.0); Immature Granulocytes % 4.5 %; Immature Granulocytes Absolute 0.83 #; Lymphocytes # 2.3 10*3/uL (1.4-4.0); Lymphocytes % 12.3 % (21.3-54.2); Mean Corpuscular HGB Conc 30.9 GM/DL (32-36); Mean Corpuscular Hemoglobin 28 PG (27-34); Mean Corpuscular Volume 89.7 FL (87-102); Mean Platelet Volume 11.4 FL (9.6-12.0); Monocytes # 1.7 10*3/uL (0.11-0.8); Monocytes % 9.5 % (1.7-12.7); NRBC # 0.04 10*3/uL; Neutrophils # 13.4 10*3/uL (1.4-7.4); Neutrophils % 72.9 % (38.7-73.9); Platelet Count 297 T/CUMM (130-400); Red Cell Distribution Width 16.4 % (9.3-17.3); White Blood Count 18.4 T/CUMM (4-12)
[2017-08-23 05:40] LABS: Hypochromasia 1+; Lymphocytes 8 % (20-55); Myelocytes 1 %; Segmented Neutrophils 87 % (50-85); Total Cells Counted 100
[2017-08-23 05:41] LABS: Anisocytosis 1+; Microcytosis 1+; Ovalocytes Slight; Polychromasia Slight
[2017-08-23 05:43] LABS: Calcium 8.2 MG/DL (8.5-10.1); Magnesium 2.2 MG/DL (1.8-2.4); Osmolality,Calculated 277.5 MOS/KG (273-304); Potassium 4.3 MMOL/L (3.5-5.1)
[2017-08-23] MEDS: CEFUROXIME 500 MG TABLET PO SCH (10:49)
[2017-08-23] MEDS: LEVOTHYROXINE 175 MCG TABLET PO SCH (10:50)
[2017-08-23] MEDS: LISINOPRIL/HCTZ 20-25 MG TABLET PO SCH (10:50)
[2017-08-23] MEDS: DULoxetine 30 MG CAPSULE PO SCH (10:51)
[2017-08-23] MEDS: ISOSORBIDE MONONITRATE 30 MG TABLET PO SCH (10:51)
[2017-08-23] MEDS: AMITRIPTYLINE 75 MG TABLET PO SCH (10:51)
[2017-08-23] MEDS: METOPROLOL TARTRATE 25 MG TABLET PO SCH (10:52)
[2017-08-23] MEDS: ASPIRIN EC 81 MG TABLET PO SCH (10:52)
[2017-08-23 11:44] VITALS: BP 114/60
== END 2017-08-23 13:12 | disposition home health service (06) | DRG 189 ==
LOC: EDBD → EDUNIT# → N.ED 19:14 → N.EDINP 20:55 → N.ICU 21:38 → N.TELEN 08-15 18:48
PROVIDERS: ADMIT Internal Medicine; ATTEND Internal Medicine